=== PATIENT | male | born 1995 | race Two or more races ===

== ENCOUNTER 2021-02-17 22:03 | Emergency (ER) | payer OTHER ==
[~2021-02-17] VITALS: Ht 170.2 cm; Wt 80.0 kg
[2021-02-17 22:10] VITALS: BP 118/65
[2021-02-17] MEDS ORDERED: CEPHALEXIN 500 MG CAPSULE PO ONE (22:30)
[2021-02-17] MEDS ORDERED: CEPHALEXIN 500 MG CAPSULE ONE (22:34)
[2021-02-17] MEDS ORDERED: PLEASE ENTER ALLERGIES MC SCH (23:00)
== END 2021-02-17 23:01 | disposition home or self-care (01) ==
LOC: ED 22:50
DX: L24.9 Irritant contact dermatitis, unspecified cause (principal)
CPT/HCPCS: 99283; J7512